=== PATIENT | female | born 1970 | race Two or more races ===

== ENCOUNTER 2023-11-16 02:47 | Emergency (ER) | payer OTHER ==
[~2023-11-16] VITALS: Ht 154.9 cm; Wt 67.1 kg
[~2023-11-16 02:47] MED LIST: CIPRO100 MG PO; CRESTOR5 MG PO; IBU600 MG PO
[2023-11-16 03:45] LABS: PH,URINE 7.5 (5.0-8.0); URINE APPEARANCE Clear; URINE BILIRRUBIN Negative (NEGATIVE); URINE BLOOD NHT; URINE COLOR Yellow; URINE GLUCOSE Negative (NEGATIVE); URINE KETONE Negative (NEGATIVE); URINE LEUKOCYTE Large; URINE NITRATE Negative; URINE PROTEIN Negative (NEGATIVE); URINE UROBILINOGEN 0.2 E.U./dl
[2023-11-16 03:48] LABS: URINE BACTERIA 461.1 uL (0.0-1933); URINE EPITHELIAL CELLS 2.7 uL (0.0-38.8); URINE RBC 10.9 uL (0.0-20.8); URINE WBC 884.9 uL (0.0-23.2)
== END 2023-11-16 04:27 | disposition home or self-care (01) ==
LOC: ER 02:49
DX: R30.0 Dysuria (principal)

== ENCOUNTER 2024-06-16 11:00 | Inpatient (IN) | payer OTHER ==
[~2024-06-16] VITALS: Ht 30.5 cm; Wt 70.8 kg
[2024-06-16 10:58] VITALS: BP 121/80
[2024-06-22] MEDS ORDERED: SUGAMMADEX SODIUM 200 MG/2 ML VIAL IV ONE (13:45)
[2024-06-22] MEDS ORDERED: METHYLENE BLUE 50MG/10ML AMP IV ONE (13:45)
[2024-06-22] MEDS ORDERED: CEFAZOLIN SODIUM 1,000 MG VIAL IV ONE (14:00)
[2024-06-22] MEDS ORDERED: RINGERS SOLUTION,LACTATED 1,000 ML IV SCH (14:30)
[2024-06-22] MEDS ORDERED: MORPHINE SULFATE 4 MG/ML VIAL IV ONE ×2 (14:30→15:30)
[2024-06-22] MEDS ORDERED: MORPHINE SULFATE 4 MG,MORPHINE SULFATE 2 MG IV SCH (16:00)
[2024-06-22 17:21] LABS: HEMATOCRIT 37.9 % (36.0-45.00); HEMOGLOBIN 12.6 g/dL (12.0-15.00); MEAN CELL VOLUME 93.5 fL (80.00-100.00); MEAN CORPUSCULAR HEMOGLOBIN 31.1 pg (27.00-32.0); MEAN CORPUSCULAR HGB CONC 33.3 g/dl (32.0-36.0); PLATELET COUNT 240 K/uL (150-450); RED BLOOD COUNT 4.05 M/uL (4.00-6.00); RED CELL DISTRIBUTION WIDTH 13.2 % (11.5-14.5)
[2024-06-22 17:44] VITALS: BP 121/80
[2024-06-22] MEDS ORDERED: CEFAZOLIN SODIUM 1,000 MG VIAL IV SCH (18:00)
[2024-06-22 20:46] VITALS: BP 119/74
[2024-06-22] MEDS ORDERED: ONDANSETRON HCL 2 MG/ML VIAL IV SCH (21:00)
[2024-06-23] VITALS: BP 126/68
[2024-06-23] MEDS ORDERED: IBUprofen 800 MG TABLET PO PRN (07:15)
[2024-06-23] MEDS ORDERED: GABAPENTIN 300 MG CAPSULE PO PRN (07:15)
[2024-06-23 08:45] VITALS: BP 117/69
[2024-06-23] MEDS ORDERED: ENOXAPARIN SODIUM 40 MG/0.4 ML SYRINGE SUBCUTANEO SCH (12:00)
[2024-06-23 15:43] VITALS: BP 117/71
[2024-06-24] VITALS: BP 100/56
[2024-06-24] MEDS ORDERED: GABAPENTIN300 MG PO (06:21)
[2024-06-24] MEDS ORDERED: IBUPROFEN800 MG PO (06:21)
[2024-06-24 08:52] VITALS: BP 103/62
== END 2024-06-24 09:38 | disposition home or self-care (01) | DRG 743 ==
LOC: OB/GYN 06-22 08:00 → O/R 06-22 08:00 → SURH 06-22 08:45 → OB/GYN 06-22 14:52
PROVIDERS: ADMIT Obstetrics & Gynecology Gynecology; ATTEND Obstetrics & Gynecology Gynecology
PROC: 0UT70ZZ Resection of Bilateral Fallopian Tubes, Open Approach (ICD-10-PCS; 2024-06-22)
PROC: 0UT20ZZ Resection of Bilateral Ovaries, Open Approach (ICD-10-PCS; 2024-06-22)
PROC: 0USG0ZZ Reposition Vagina, Open Approach (ICD-10-PCS; 2024-06-22)
PROC: 0UT90ZZ Resection of Uterus, Open Approach (ICD-10-PCS; principal; 2024-06-22 08:45)
DX: D25.0 Submucous leiomyoma of uterus (principal); N72 Inflammatory disease of cervix uteri; N85.02 Endometrial intraepithelial neoplasia [EIN]; N95.0 Postmenopausal bleeding